=== PATIENT | female | born 1950 | race Caucasian/White ===

== ENCOUNTER → 2017-04-06 | Outpatient (CLI) | payer MEDICARE ==
--- NOTE | 2017-04-06 15:05 | REPMRS ---
Patient History The patient states she had a clinical breast exam in 03/2017. Patient is postmenopausal. No known family history of cancer. Took hormonal contraceptives for 4 years. Took unspecified hormones for 1 year. Digital Woman Screen Mammo: April 06, 2017 - Exam #: [id number] Bilateral CC and MLO view(s) were taken. Technologist: Juliet Peck Technologist Prior study comparison: March 24, 2016, digital woman screen mammo performed at [facility]. February 05, 2015, digital woman screen mammo performed at [facility]. January 30, 2014, bilateral bilat screen digital mammo, performed at [facility] ([facility]). FINDINGS: There are scattered fibroglandular densities. There has been no change in the appearance of the mammogram from the prior studies. There is a mild amount of scattered fibroglandular density which is fairly symmetric. There is no interval development of dominant mass, architectural distortion, or clustered microcalcification suggestive of malignancy. ASSESSMENT: BI-RADS/ACR category 1 mammogram. Negative. Recommendation Routine screening mammogram in 1 year (for women over age 40). This mammogram was interpreted with the aid of an FDA-approved computer-aided dectection system. Electronically Signed By: Duane Chao MD 04/06/17 [id number]
== END ==
LOC: M WHC 11:20
PROVIDERS: ATTEND Registered Nurse
DX: Z12.31 Encounter for screening mammogram for malignant neoplasm of breast (principal)

== ENCOUNTER → 2018-04-22 | Outpatient (CLI) | payer MEDICARE | LOC: M WHC 11:12 | DX: Z12.31 Encounter for screening mammogram for malignant neoplasm of breast (principal) | CPT/HCPCS: 77067 ==

== ENCOUNTER → 2019-05-14 | Outpatient (CLI) | payer MEDICARE ==
--- NOTE | 2019-05-14 10:54 | REPMRS ---
Patient History The patient states she had a clinical breast exam in 03/2019. No known family history of cancer. Took hormonal contraceptives for 4 years. Took unspecified hormones for 1 year. 3D TOMOSYNTHESIS WAS PERFORMED. [facility] lifetime risk for breast cancer is 5.[facility]%. Digital Woman Screen Mammo: May 14, 2019 - Exam #: [id number] Bilateral CC and MLO view(s) were taken. Technologist: Keerthi Rivers, Technologist Prior study comparison: April 22, 2018, bilateral digital woman screen mammo performed at [facility]. April 06, 2017, digital woman screen mammo performed at [facility]. FINDINGS: The breast tissue is heterogeneously dense. This may lower the sensitivity of mammography. There has been no change in the appearance of the mammogram from the prior studies. There is a moderate amount of residual fibroglandular tissue which is fairly symmetric. There is no interval development of dominant mass, areas of architectural distortion, or clustered microcalcification typical of malignancy. Assessment: BI-RADS/ACR category 1 mammogram. Negative Mammogram. Recommendation Routine screening mammogram in 1 year (for women over age 40). This mammogram was interpreted with the aid of an FDA-approved computer-aided dectection system. Electronically Signed By: Db Epps MD 05/14/19 [id number]
== END ==
LOC: M WHC 09:39
PROVIDERS: ATTEND Obstetrics & Gynecology
DX: Z12.31 Encounter for screening mammogram for malignant neoplasm of breast (principal); Z92.0 Personal history of contraception

== ENCOUNTER → 2023-03-07 | Outpatient (REF) | payer MEDICARE | LOC: M SFHCDERM 14:05 | PROVIDERS: ATTEND Physician Assistant | DX: Z22.321 Carrier or suspected carrier of Methicillin susceptible Staphylococcus aureus (principal) ==

== ENCOUNTER → 2024-08-27 | Outpatient (REF) | payer MEDICARE | LOC: M SFHCDERM 18:09 | PROVIDERS: ATTEND Physician Assistant | DX: B35.1 Tinea unguium (principal) ==